=== PATIENT | female | born 1990 ===

== ENCOUNTER 2020-07-10 14:29 | Inpatient (IN) | payer OTHER ==
[~2020-07-10] VITALS: Ht 162.6 cm; Wt 89.8 kg
--- NOTE | 2020-07-10 14:57 | NUR ---
PATIENT WALKED BACK FROM TRIAGE WITH CHIEF C/O SOB,. FEVER, BODY ACHES AND CHILLS X3 DAYS,. PATIENT STATES SHE IS ALSO EXPERIENCING N/V/D, HUSSEIN, LOSS OF TASTE AND SMELL,. NO SIGNS OF ACUTE DISTRESS, CONNECTED TO VITALS MACHINE,. O2 SATURATION IS 93% ON 5 LPM NC, HR 124, BP IS 137/93,. CALL LIGHT WITHIN REACH,.
[2020-07-10] MEDS ORDERED: AZITHROMYCIN 500 MG in SODIUM CHLORIDE 0.9% 250 ML IVPB ONE (15:30)
[2020-07-10] MEDS ORDERED: SODIUM CHLORIDE FLUSH 10ML SYR IVF ONE (15:30)
[2020-07-10] MEDS ORDERED: CEFTRIAXONE PMX 1GM/50ML 50 ML IVPB ONE (15:30)
[2020-07-10] MEDS ORDERED: DEXAMETHASONE 4 MG/ML, 1ML IVPush ONE (15:30)
--- NOTE | 2020-07-10 15:46 | NUR ---
X-RAY AT BEDSIDE.
[2020-07-10 16:04] LABS: BASOPHILS % (AUTO) 0 % (0-1); EOSINOPHILS % (AUTO) 0 % (1-7); LYMPHOCYTES % (AUTO) 14 % (22-44); MEAN CORPUSCULAR HEMOGLOBIN 31.7 pg (27.5-34.5); MEAN CORPUSCULAR HGB CONC 33.1 g/dL (33.2-36.2); MEAN PLATELET VOLUME 7.4 fL (7.4-10.4); MONOCYTES % (AUTO) 8 % (2-9); NEUTROPHILS % (AUTO) 78 % (42-75); PLATELET COUNT 313 x10^3/uL (130-400); RED BLOOD COUNT 4.54 x10^6/uL (4.38-5.82); RED CELL DISTRIBUTION WIDTH 14.6 % (9.4-14.8)
[2020-07-10 16:05] LABS: ALBUMIN 2.3 g/dL (3.4-5.0); ANION GAP 5 mmol/L (5-15); CALCIUM 8.6 mg/dL (8.5-10.1); CHLORIDE 108 mmol/L (98-107); CREATININE 0.72 mg/dL (0.7-1.3)
--- NOTE | 2020-07-10 16:07 | NUR ---
20 gauge IV started right AC, second set of blood cultures drawn and sent to lab.
[2020-07-10 16:08] LABS: D-DIMER 0.37 ug/mlFEU (0.00-0.52); INTERNATIONAL NORMALIZED RATIO 0.96 (0.93-1.1); PROTHROMBIN TIME 10.2 Seconds (9.6-11.5)
[2020-07-10] MEDS ORDERED: CEFTRIAXONE PMX 1GM/50ML 50 ML ONE (16:08)
[2020-07-10 16:09] LABS: MD NO
[2020-07-10] MEDS ORDERED: DEXAMETHASONE 4 MG/ML, 1ML ONE (16:19)
--- NOTE | 2020-07-10 16:56 | NUR ---
PATIENT REQUESTING WATER, SPOKE WITH PROVIDER AND GOT OKAY FOR PATIENT TO HAVE WATER. WATER PROVIDED TO PATIENT, PATIENT RESTING IN RNEY, NO SIGNS OF ACUTE DISTRESS, CONNECTED TO CHARGE ATTENDANT, CALL LIGHT WITHIN REACH AND NO FURTHER NEEDS AT THIS TIME.
--- NOTE | 2020-07-10 17:47 | NUR ---
PROVIDED BSC FOR PATIENT TO USE, PATIENT ABLE TO AMBULATE WITH STEADY GAIT TO BSC.
[2020-07-10] MEDS ORDERED: CEFTRIAXONE PMX 1GM/50ML 50 ML IV SCH (18:30)
[2020-07-10] MEDS: AZITHROMYCIN 500 MG in SODIUM CHLORIDE 0.9% 250 ML IV SCH (18:30)
[2020-07-10] MEDS ORDERED: POLYETHYLENE GLYCOL 17 GM PACKET PO PRN (18:30)
[2020-07-10] MEDS ORDERED: SODIUM CHLORIDE FLUSH 10ML SYR IVF PRN (18:30)
[2020-07-10] MEDS ORDERED: BISACODYL 10 MG SUPP PR PRN (18:30)
[2020-07-10] MEDS ORDERED: HEPARIN 5,000 UNITS/ML, 1ML ONE (18:56)
[2020-07-10] MEDS ORDERED: NS + 20MEQ KCL 1,000 ML IV ONE (18:56)
[2020-07-10] MEDS: HEPARIN 5,000 UNITS/ML, 1ML SQ SCH (19:03)
[2020-07-10] MEDS: NS + 20MEQ KCL 1,000 ML IV SCH (19:03)
--- NOTE | 2020-07-10 19:20 | NUR ---
FLUIDS HUNG, COVID AND FLU SWAB DONE AND WALKED TO LAB. RESPIRATORY AT BEDSIDE.
--- NOTE | 2020-07-10 20:08 | NUR ---
PATIENT RESTING IN GURNEY, WATCHING TV, CONNECTED TO INSURANCE VERIFICATION CLERK, NO SIGNS OF ACUTE DISTRESS, CALL LIGHT WITHIN REACH, BSC EMPTIED.
[2020-07-10 20:13] LABS: RAPID INFLUENZA A Negative (Negative)
[2020-07-10 20:14] LABS: RAPID INFLUENZA B Negative (Negative)
--- NOTE | 2020-07-10 21:13 | NUR ---
PATIENT PROVIDED WARM BLANKET, AND WATER. LAYING IN GURNEY WATCHING TV, NO SIGNS OF ACUTE DISTRESS, CONNECTED TO RETINAL ANGIOGRAPHER, CALL LIGHT WITHIN REACH, NO FURTHER NEEDS AT THIS TIME.
--- NOTE | 2020-07-10 22:26 | NUR ---
HOSPITAL BED REQUESTED.
--- NOTE | 2020-07-10 23:18 | NUR ---
PATIENT TRANSFERRED TO HOSPITAL BED.
--- NOTE | 2020-07-10 23:22 | NUR ---
1ST ATTEMPT TO GIVE REPORT.
--- NOTE | 2020-07-10 23:35 | NUR ---
REPORT CALLED TO [facility] ICU FOR TRANSFER OF PATIENT CARE.
--- NOTE | 2020-07-10 23:54 | NUR ---
PATIENT TRANSFERRED VIA HOSPITAL BED BY THIS RN AND [facility] TO ICU 12. ALL PATIENT BELONGINGS GATHERED AND TAKEN WITH PATIENT. TRANSFER OF CARE TO [facility].
[2020-07-10 23:58] VITALS: BP 132/91
[2020-07-11 03:12] VITALS: BP 131/87
[2020-07-11] MEDS: HEPARIN 5,000 UNITS/ML, 1ML SQ SCH ×3 (03:12→18:20)
[2020-07-11 04:00] LABS: BASOPHILS % (AUTO) 0 % (0-1); EOSINOPHILS % (AUTO) 0 % (1-7); LYMPHOCYTES % (AUTO) 15 % (22-44); MEAN CORPUSCULAR HEMOGLOBIN 31.7 pg (27.0-34.8); MEAN PLATELET VOLUME 7.3 fL (7.4-10.4); MONOCYTES % (AUTO) 8 % (2-9); NEUTROPHILS % (AUTO) 77 % (42-75); PLATELET COUNT 334 x10^3/uL (130-400); RED BLOOD COUNT 4.27 x10^6/uL (3.82-5.3); RED CELL DISTRIBUTION WIDTH 14.4 % (9.6-15.2)
[2020-07-11 04:02] LABS: ANION GAP 7 mmol/L (5-15); CALCIUM 8.4 mg/dL (8.5-10.1); CHLORIDE 112 mmol/L (98-107); CREATININE 0.59 mg/dL (0.55-1.02); MD NO
[2020-07-11] MEDS: NS + 20MEQ KCL 1,000 ML IV SCH ×2 (05:34→20:27)
[2020-07-11 08:30] VITALS: BP 148/99
[2020-07-11] MEDS ORDERED: DEXAMETHASONE 4 MG/ML, 1ML IVPush SCH (09:00)
[2020-07-11] MEDS ORDERED: CHOLECALCIFEROL 1,000 UNIT TABLET PO SCH (09:00)
[2020-07-11] MEDS: SENNA/DOCUSATE TABLET PO SCH (09:00)
[2020-07-11] MEDS ORDERED: ASCORBIC ACID 500 MG TABLET PO SCH (09:00)
[2020-07-11] MEDS ORDERED: ASCORBATE SODIUM 3,000 MG in SODIUM CHLORIDE 0.9% 250 ML IVPB SCH (09:30)
[2020-07-11 09:45] LABS: ALKALINE PHOSPHATASE 89 U/L (45-117); BILIRUBIN,TOTAL 0.2 mg/dL (0.2-1.0); TOTAL PROTEIN 7.2 g/dL (6.4-8.2)
[2020-07-11 09:48] LABS: BILIRUBIN, DIRECT < 0.1 mg/dL (0.1-0.2); BILIRUBIN,INDIRECT 0.1 mg/dL (0.0-2.0)
[2020-07-11 09:49] LABS: ALANINE AMINOTRANSFERASE 50 U/L (12-78); ALBUMIN 2.1 g/dL (3.4-5.0)
[2020-07-11] MEDS ORDERED: CHOLECALCIFEROL 5,000u TAB ONE (10:22)
[2020-07-11] MEDS: ZINC SULFATE 220 MG CAPSULE PO SCH (10:25)
[2020-07-11] MEDS: ASCORBIC ACID 500 MG TABLET PO SCH ×2 (10:25→20:26)
[2020-07-11] MEDS: CEFTRIAXONE PMX 2GM/50ML 50 ML IVPB SCH (10:26)
[2020-07-11] MEDS: CHOLECALCIFEROL 5,000u TAB PO SCH (10:27)
[2020-07-11] MEDS ORDERED: REMDESIVIR 200 MG in SODIUM CHLORIDE 0.9% 250 ML IVPB ONE (11:00)
[2020-07-11] MEDS: INSULIN LISPRO 100 UNITS/ML, PEN SQ-INSULIN SCH ×3 (11:40→20:25)
[2020-07-11 13:58] VITALS: BP 128/83
[2020-07-11] MEDS: DEXAMETHASONE 4 MG/ML, 1ML IVPush SCH ×2 (16:34→20:26)
[2020-07-11] MEDS: AZITHROMYCIN 500 MG in SODIUM CHLORIDE 0.9% 250 ML IV SCH (16:34)
[2020-07-11] MEDS: ONDANSETRON ODT 4 MG PO PRN (16:46)
[2020-07-11] MEDS: metFORMIN 850 MG TABLET PO SCH (18:07)
[2020-07-11 20:38] VITALS: BP 151/99
[2020-07-12] VITALS: BP 125/85
[2020-07-12] MEDS: HEPARIN 5,000 UNITS/ML, 1ML SQ SCH ×3 (03:14→21:02)
[2020-07-12] MEDS: ACETAMINOPHEN 325 MG TABLET PO PRN (04:37)
[2020-07-12] MEDS: NS + 20MEQ KCL 1,000 ML IV SCH ×2 (04:37→16:56)
[2020-07-12 04:41] LABS: ANION GAP 8 mmol/L (5-15); CALCIUM 8.1 mg/dL (8.5-10.1); CHLORIDE 110 mmol/L (98-107)
[2020-07-12 04:47] LABS: ALANINE AMINOTRANSFERASE 43 U/L (12-78); ALKALINE PHOSPHATASE 85 U/L (45-117); BILIRUBIN,TOTAL 0.3 mg/dL (0.2-1.0)
[2020-07-12 08:00] VITALS: BP 142/93
[2020-07-12] MEDS: INSULIN LISPRO 100 UNITS/ML, PEN SQ-INSULIN SCH ×4 (08:37→21:13)
[2020-07-12] MEDS: metFORMIN 850 MG TABLET PO SCH ×2 (08:38→16:56)
[2020-07-12] MEDS: ASCORBIC ACID 500 MG TABLET PO SCH ×2 (08:39→21:02)
[2020-07-12] MEDS: ZINC SULFATE 220 MG CAPSULE PO SCH (08:39)
[2020-07-12] MEDS: SENNA/DOCUSATE TABLET PO SCH (08:39)
[2020-07-12] MEDS: THIAMINE 50MG TABLET PO SCH (08:39)
[2020-07-12] MEDS: DEXAMETHASONE 4 MG/ML, 1ML IVPush SCH ×3 (08:40→21:01)
[2020-07-12] MEDS: CHOLECALCIFEROL 5,000u TAB PO SCH (08:40)
[2020-07-12] MEDS: CEFTRIAXONE PMX 2GM/50ML 50 ML IVPB SCH (08:53)
[2020-07-12] MEDS: REMDESIVIR 100 MG in SODIUM CHLORIDE 0.9% 250 ML IVPB SCH (12:22)
[2020-07-12] MEDS: ONDANSETRON ODT 4 MG PO PRN (13:44)
[2020-07-12 15:00] VITALS: BP 142/87
[2020-07-12] MEDS: AZITHROMYCIN 500 MG in SODIUM CHLORIDE 0.9% 250 ML IV SCH (16:56)
[2020-07-12 20:54] VITALS: BP 126/67
[2020-07-12] MEDS: PROMETHAZINE/COD. 10MG/6.25MG/5 ML ORAL SOL PO PRN (21:03)
[2020-07-13 00:57] VITALS: BP 130/83
[2020-07-13] MEDS: NS + 20MEQ KCL 1,000 ML IV SCH ×2 (04:31→15:47)
[2020-07-13] MEDS: GUAIFENESIN/DM 200-20MG, 10ML UDC PO PRN ×2 (04:31→12:38)
[2020-07-13] MEDS: ACETAMINOPHEN 325 MG TABLET PO PRN (04:31)
[2020-07-13] MEDS: HEPARIN 5,000 UNITS/ML, 1ML SQ SCH ×3 (04:32→22:51)
[2020-07-13 04:58] LABS: CHLORIDE 106 mmol/L (98-107)
[2020-07-13 05:07] LABS: ALANINE AMINOTRANSFERASE 40 U/L (12-78); ALBUMIN 2.1 g/dL (3.4-5.0); ALKALINE PHOSPHATASE 79 U/L (45-117); ANION GAP 9 mmol/L (5-15); BILIRUBIN,TOTAL 0.2 mg/dL (0.2-1.0); CALCIUM 8.5 mg/dL (8.5-10.1); CREATININE 0.76 mg/dL (0.55-1.02); TOTAL PROTEIN 6.9 g/dL (6.4-8.2)
[2020-07-13 05:26] LABS: MEAN CORPUSCULAR HEMOGLOBIN 31.3 pg (27.0-34.8); MEAN CORPUSCULAR HGB CONC 32.8 g/dL (32.4-35.8); MEAN PLATELET VOLUME 7.6 fL (7.4-10.4); PLATELET COUNT 473 x10^3/uL (130-400); RED BLOOD COUNT 4.28 x10^6/uL (3.82-5.3); RED CELL DISTRIBUTION WIDTH 14.3 % (9.6-15.2)
[2020-07-13 06:23] LABS: MD YES
[2020-07-13 06:24] LABS: BANDS%(MANUAL) 4 % (0-7); LYMPH#(MANUAL) 0.98 x10^3/uL (1-3.4); LYMPHS% (MANUAL) 13 % (22-44); METAMYELOCYTES# (MANUAL) 0.08 x10^3/uL (0-0); METAMYELOCYTES% (MANUAL) 1 % (0-1); MONOS#(MANUAL) 0.38 x10^3/uL (0.3-2.7); MONOS% (MANUAL) 5 % (2-9); SEG#(MANUAL) 5.78 x10^3/uL (1.8-6.8); SEGS% (MANUAL) 77 % (42-75)
[2020-07-13 06:25] LABS: <PLATELET ESTIMATE> INCREASED; <PLT MORPHOLOGY> NORMAL PLT MORPH; <RBC MORPHOLOGY> NORMAL
[2020-07-13] MEDS ORDERED: THIAMINE 100MG TABLET ONE (08:18)
[2020-07-13] MEDS: INSULIN LISPRO 100 UNITS/ML, PEN SQ-INSULIN SCH ×4 (08:32→22:53)
[2020-07-13] MEDS: SENNA/DOCUSATE TABLET PO SCH (08:33)
[2020-07-13] MEDS: ASCORBIC ACID 500 MG TABLET PO SCH ×2 (08:33→22:52)
[2020-07-13] MEDS: metFORMIN 850 MG TABLET PO SCH ×3 (08:34→22:52)
[2020-07-13] MEDS: CHOLECALCIFEROL 5,000u TAB PO SCH (08:34)
[2020-07-13] MEDS: ZINC SULFATE 220 MG CAPSULE PO SCH (08:34)
[2020-07-13] MEDS: THIAMINE 50MG TABLET PO SCH (08:34)
[2020-07-13] MEDS: DEXAMETHASONE 4 MG/ML, 1ML IVPush SCH ×3 (08:35→22:51)
[2020-07-13] MEDS: CEFTRIAXONE PMX 2GM/50ML 50 ML IVPB SCH (08:35)
[2020-07-13 08:36] VITALS: BP 119/80
[2020-07-13] MEDS: REMDESIVIR 100 MG in SODIUM CHLORIDE 0.9% 250 ML IVPB SCH (12:06)
[2020-07-13 14:02] VITALS: BP 122/82
[2020-07-13] MEDS: AZITHROMYCIN 500 MG in SODIUM CHLORIDE 0.9% 250 ML IV SCH (15:47)
[2020-07-13] MEDS: PROMETHAZINE/COD. 10MG/6.25MG/5 ML ORAL SOL PO PRN (23:27)
[2020-07-14 02:30] VITALS: BP 132/87
[2020-07-14 04:27] LABS: INTERNATIONAL NORMALIZED RATIO 1.08 (0.93-1.1); PROTHROMBIN TIME 11.4 Seconds (9.6-11.5)
[2020-07-14 04:31] LABS: ALBUMIN 2.4 g/dL (3.4-5.0); ANION GAP 7 mmol/L (5-15); CALCIUM 8.4 mg/dL (8.5-10.1); CHLORIDE 106 mmol/L (98-107)
[2020-07-14 04:34] LABS: CREATININE 0.96 mg/dL (0.55-1.02)
[2020-07-14 04:35] LABS: ALANINE AMINOTRANSFERASE 44 U/L (12-78); ALKALINE PHOSPHATASE 81 U/L (45-117); BILIRUBIN,TOTAL 0.3 mg/dL (0.2-1.0); TOTAL PROTEIN 7.1 g/dL (6.4-8.2)
[2020-07-14] MEDS: HEPARIN 5,000 UNITS/ML, 1ML SQ SCH ×3 (05:26→20:08)
[2020-07-14] MEDS: NS + 20MEQ KCL 1,000 ML IV SCH ×2 (05:26→16:15)
[2020-07-14] MEDS: INSULIN LISPRO 100 UNITS/ML, PEN SQ-INSULIN SCH ×4 (05:32→20:08)
[2020-07-14] MEDS ORDERED: THIAMINE 100MG TABLET ONE (08:54)
[2020-07-14] MEDS: CHOLECALCIFEROL 5,000u TAB PO SCH (09:00)
[2020-07-14] MEDS: SENNA/DOCUSATE TABLET PO SCH (09:00)
[2020-07-14] MEDS: THIAMINE 50MG TABLET PO SCH (09:00)
[2020-07-14 09:54] VITALS: BP 129/84
[2020-07-14] MEDS: CEFTRIAXONE PMX 2GM/50ML 50 ML IVPB SCH (09:57)
[2020-07-14] MEDS: ONDANSETRON ODT 4 MG PO PRN (09:57)
[2020-07-14] MEDS: ASCORBIC ACID 500 MG TABLET PO SCH ×2 (09:59→20:24)
[2020-07-14] MEDS: metFORMIN 850 MG TABLET PO SCH ×3 (09:59→20:08)
[2020-07-14] MEDS: ZINC SULFATE 220 MG CAPSULE PO SCH (09:59)
[2020-07-14] MEDS: DEXAMETHASONE 4 MG/ML, 1ML IVPush SCH ×3 (10:00→20:08)
[2020-07-14] MEDS: REMDESIVIR 100 MG in SODIUM CHLORIDE 0.9% 250 ML IVPB SCH (12:20)
[2020-07-14 12:25] VITALS: BP 101/66
[2020-07-14] MEDS: AZITHROMYCIN 500 MG in SODIUM CHLORIDE 0.9% 250 ML IV SCH (16:15)
[2020-07-14 19:22] VITALS: BP 123/81
[2020-07-14] MEDS: INSULIN GLARGINE 100 UNITS/ML, PEN SQ-INSULIN SCH (20:24)
[2020-07-14] MEDS: PROMETHAZINE/COD. 10MG/6.25MG/5 ML ORAL SOL PO PRN (22:24)
[2020-07-15 00:06] VITALS: BP 121/80
[2020-07-15 04:54] LABS: ALANINE AMINOTRANSFERASE 46 U/L (12-78); ALBUMIN 2.2 g/dL (3.4-5.0); ANION GAP 4 mmol/L (5-15); CALCIUM 8.4 mg/dL (8.5-10.1); CHLORIDE 107 mmol/L (98-107); CREATININE 0.65 mg/dL (0.55-1.02)
[2020-07-15 04:57] LABS: ALKALINE PHOSPHATASE 73 U/L (45-117); BILIRUBIN,TOTAL 0.3 mg/dL (0.2-1.0); TOTAL PROTEIN 6.3 g/dL (6.4-8.2)
[2020-07-15] MEDS: HEPARIN 5,000 UNITS/ML, 1ML SQ SCH ×3 (05:35→20:17)
[2020-07-15] MEDS: INSULIN LISPRO 100 UNITS/ML, PEN SQ-INSULIN SCH ×4 (08:28→20:18)
[2020-07-15] MEDS: ACETAMINOPHEN 325 MG TABLET PO PRN (08:29)
[2020-07-15] MEDS: DEXAMETHASONE 4 MG/ML, 1ML IVPush SCH ×3 (08:29→20:16)
[2020-07-15] MEDS: GUAIFENESIN/DM 200-20MG, 10ML UDC PO PRN ×3 (08:29→23:12)
[2020-07-15] MEDS: ASCORBIC ACID 500 MG TABLET PO SCH ×2 (08:30→20:16)
[2020-07-15] MEDS: ZINC SULFATE 220 MG CAPSULE PO SCH (08:30)
[2020-07-15] MEDS: CHOLECALCIFEROL 5,000u TAB PO SCH (08:30)
[2020-07-15] MEDS: THIAMINE 50MG TABLET PO SCH (08:30)
[2020-07-15] MEDS: SENNA/DOCUSATE TABLET PO SCH (08:31)
[2020-07-15] MEDS: metFORMIN 850 MG TABLET PO SCH ×3 (08:31→20:16)
[2020-07-15 08:32] VITALS: BP 120/80
[2020-07-15] MEDS: CEFTRIAXONE PMX 2GM/50ML 50 ML IVPB SCH (10:51)
[2020-07-15 12:42] VITALS: BP 119/84
[2020-07-15] MEDS: REMDESIVIR 100 MG in SODIUM CHLORIDE 0.9% 250 ML IVPB SCH (13:02)
[2020-07-15] MEDS: AZITHROMYCIN 500 MG in SODIUM CHLORIDE 0.9% 250 ML IV SCH (15:50)
[2020-07-15] MEDS: GUAIFENESIN ER 600 MG TABLET PO SCH (20:16)
[2020-07-15 20:19] VITALS: BP 137/91
[2020-07-15] MEDS: INSULIN GLARGINE 100 UNITS/ML, PEN SQ-INSULIN SCH (20:19)
[2020-07-16 01:27] VITALS: BP 125/84
[2020-07-16] MEDS: HEPARIN 5,000 UNITS/ML, 1ML SQ SCH ×3 (04:45→21:50)
[2020-07-16] MEDS: INSULIN LISPRO 100 UNITS/ML, PEN SQ-INSULIN SCH ×4 (05:13→22:01)
[2020-07-16 07:22] VITALS: BP 117/80
[2020-07-16] MEDS: THIAMINE 50MG TABLET PO SCH (07:26)
[2020-07-16] MEDS: metFORMIN 850 MG TABLET PO SCH ×3 (07:26→21:49)
[2020-07-16] MEDS: ZINC SULFATE 220 MG CAPSULE PO SCH (07:27)
[2020-07-16] MEDS: GUAIFENESIN ER 600 MG TABLET PO SCH ×2 (07:27→22:17)
[2020-07-16] MEDS: CHOLECALCIFEROL 5,000u TAB PO SCH (07:27)
[2020-07-16] MEDS: DEXAMETHASONE 4 MG/ML, 1ML IVPush SCH ×3 (07:27→21:46)
[2020-07-16] MEDS: SENNA/DOCUSATE TABLET PO SCH (07:27)
[2020-07-16] MEDS: ASCORBIC ACID 500 MG TABLET PO SCH ×2 (07:27→22:17)
[2020-07-16] MEDS: CEFTRIAXONE PMX 2GM/50ML 50 ML IVPB SCH (13:10)
[2020-07-16 13:55] VITALS: BP 124/85
[2020-07-16] MEDS ORDERED: ACETAMINOPHEN 650 MG/20.3 ML UDC ONE (16:03)
[2020-07-16] MEDS: GUAIFENESIN/DM 200-20MG, 10ML UDC PO PRN (16:22)
[2020-07-16] MEDS: AZITHROMYCIN 500 MG in SODIUM CHLORIDE 0.9% 250 ML IV SCH (16:38)
[2020-07-16] MEDS: ACETAMINOPHEN 325 MG TABLET PO PRN (18:50)
[2020-07-16] MEDS: INSULIN GLARGINE 100 UNITS/ML, PEN SQ-INSULIN SCH (22:01)
[2020-07-16 22:20] VITALS: BP 126/86
[2020-07-17 03:30] VITALS: BP 127/87
[2020-07-17 05:09] LABS: MEAN CORPUSCULAR HEMOGLOBIN 31.3 pg (27.0-34.8); MEAN CORPUSCULAR HGB CONC 33.1 g/dL (32.4-35.8); MEAN PLATELET VOLUME 7.4 fL (7.4-10.4); PLATELET COUNT 577 x10^3/uL (130-400); RED BLOOD COUNT 4.65 x10^6/uL (3.82-5.3)
[2020-07-17] MEDS: HEPARIN 5,000 UNITS/ML, 1ML SQ SCH ×3 (05:09→21:00)
[2020-07-17] MEDS: GUAIFENESIN/DM 200-20MG, 10ML UDC PO PRN (05:20)
[2020-07-17 05:24] LABS: C-REACTIVE PROTEIN, QUANT 0.39 mg/dL (0.02-0.49)
[2020-07-17 05:52] LABS: MD YES
[2020-07-17 05:54] LABS: <PLATELET ESTIMATE> INCREASED; <RBC MORPHOLOGY> NORMAL; BAND#(MANUAL) 0.37 x10^3/uL; BANDS%(MANUAL) 3 % (0-7); LYMPH#(MANUAL) 1.24 x10^3/uL (1-3.4); LYMPHS% (MANUAL) 10 % (22-44); METAMYELOCYTES# (MANUAL) 0.12 x10^3/uL (0-0); METAMYELOCYTES% (MANUAL) 1 % (0-1); MONOS#(MANUAL) 0.99 x10^3/uL (0.3-2.7); MONOS% (MANUAL) 8 % (2-9); MYELOCYTES# (MANUAL) 0.12 x10^3/uL (0-0); MYELOCYTES% (MANUAL) 1 % (0-0); SEG#(MANUAL) 9.55 x10^3/uL (1.8-6.8); SEGS% (MANUAL) 77 % (42-75)
[2020-07-17 05:55] LABS: LARGE PLATELETS 1+
[2020-07-17] MEDS: INSULIN LISPRO 100 UNITS/ML, PEN SQ-INSULIN SCH ×4 (08:23→21:00)
[2020-07-17] MEDS: ZINC SULFATE 220 MG CAPSULE PO SCH (08:24)
[2020-07-17] MEDS: THIAMINE 50MG TABLET PO SCH (08:24)
[2020-07-17] MEDS: CHOLECALCIFEROL 5,000u TAB PO SCH (08:24)
[2020-07-17] MEDS: GUAIFENESIN ER 600 MG TABLET PO SCH ×2 (08:24→21:00)
[2020-07-17] MEDS: metFORMIN 850 MG TABLET PO SCH ×3 (08:24→21:00)
[2020-07-17] MEDS: ASCORBIC ACID 500 MG TABLET PO SCH ×2 (08:24→21:00)
[2020-07-17] MEDS: SENNA/DOCUSATE TABLET PO SCH (08:24)
[2020-07-17] MEDS: DEXAMETHASONE 4 MG/ML, 1ML IVPush SCH (08:25)
[2020-07-17 08:32] VITALS: BP 117/79
[2020-07-17] MEDS: CEFTRIAXONE PMX 2GM/50ML 50 ML IVPB SCH (10:42)
[2020-07-17 13:16] VITALS: BP 109/73
[2020-07-17] MEDS: AZITHROMYCIN 500 MG in SODIUM CHLORIDE 0.9% 250 ML IV SCH (16:34)
[2020-07-17 21:00] VITALS: BP 127/81
[2020-07-17] MEDS: INSULIN GLARGINE 100 UNITS/ML, PEN SQ-INSULIN SCH (21:00)
[2020-07-18 02:00] VITALS: BP 82/62
[2020-07-18] MEDS: HEPARIN 5,000 UNITS/ML, 1ML SQ SCH ×3 (05:00→20:21)
[2020-07-18 09:00] VITALS: BP 114/79
[2020-07-18] MEDS: INSULIN LISPRO 100 UNITS/ML, PEN SQ-INSULIN SCH ×4 (09:34→20:36)
[2020-07-18] MEDS: metFORMIN 850 MG TABLET PO SCH ×3 (09:35→20:21)
[2020-07-18] MEDS: SENNA/DOCUSATE TABLET PO SCH (09:35)
[2020-07-18] MEDS: GUAIFENESIN ER 600 MG TABLET PO SCH ×2 (09:35→20:21)
[2020-07-18] MEDS: DEXAMETHASONE 4 MG/ML, 1ML IVPush SCH (09:35)
[2020-07-18] MEDS: THIAMINE 50MG TABLET PO SCH (09:36)
[2020-07-18] MEDS: CHOLECALCIFEROL 5,000u TAB PO SCH (09:37)
[2020-07-18] MEDS: ZINC SULFATE 220 MG CAPSULE PO SCH (09:37)
[2020-07-18] MEDS: ASCORBIC ACID 500 MG TABLET PO SCH ×2 (09:37→20:21)
[2020-07-18] MEDS: CEFTRIAXONE PMX 2GM/50ML 50 ML IVPB SCH (10:56)
[2020-07-18] MEDS: ACETAMINOPHEN 325 MG TABLET PO PRN (13:01)
[2020-07-18 14:00] VITALS: BP 129/81
[2020-07-18] MEDS: AZITHROMYCIN 500 MG in SODIUM CHLORIDE 0.9% 250 ML IV SCH (16:05)
[2020-07-18 18:59] VITALS: BP 137/85
[2020-07-18] MEDS: GUAIFENESIN/DM 200-20MG, 10ML UDC PO PRN (19:45)
[2020-07-18] MEDS: INSULIN GLARGINE 100 UNITS/ML, PEN SQ-INSULIN SCH (20:36)
[2020-07-19 00:26] VITALS: BP 125/85
[2020-07-19] MEDS: HEPARIN 5,000 UNITS/ML, 1ML SQ SCH ×3 (04:39→21:31)
[2020-07-19 04:43] LABS: MEAN CORPUSCULAR HEMOGLOBIN 31.5 pg (27.0-34.8); MEAN CORPUSCULAR HGB CONC 33.1 g/dL (32.4-35.8); MEAN PLATELET VOLUME 7.6 fL (7.4-10.4); PLATELET COUNT 481 x10^3/uL (130-400); RED BLOOD COUNT 4.43 x10^6/uL (3.82-5.3); RED CELL DISTRIBUTION WIDTH 14.4 % (9.6-15.2)
[2020-07-19 04:53] LABS: ANION GAP 6 mmol/L (5-15); CALCIUM 8.3 mg/dL (8.5-10.1); CHLORIDE 111 mmol/L (98-107); CREATININE 0.56 mg/dL (0.55-1.02)
[2020-07-19 05:48] LABS: MD YES
[2020-07-19 05:50] LABS: BASOS#(MANUAL) 0.13 x10^3/uL (0-0.1); BASOS% (MANUAL) 1 % (0-1); LYMPH#(MANUAL) 1.25 x10^3/uL (1-3.4); LYMPHS% (MANUAL) 10 % (22-44); METAMYELOCYTES% (MANUAL) 4 % (0-1); MONOS#(MANUAL) 1.13 x10^3/uL (0.3-2.7); MONOS% (MANUAL) 9 % (2-9); MYELOCYTES# (MANUAL) 0.13 x10^3/uL (0-0); MYELOCYTES% (MANUAL) 1 % (0-0); SEG#(MANUAL) 9.38 x10^3/uL (1.8-6.8); SEGS% (MANUAL) 75 % (42-75)
[2020-07-19 05:56] LABS: <PLATELET ESTIMATE> INCREASED; <PLT MORPHOLOGY> NORMAL PLT MORPH; <RBC MORPHOLOGY> NORMAL
[2020-07-19] MEDS: INSULIN LISPRO 100 UNITS/ML, PEN SQ-INSULIN SCH ×4 (06:20→21:32)
[2020-07-19 08:00] VITALS: BP 125/83
[2020-07-19] MEDS: SENNA/DOCUSATE TABLET PO SCH (09:30)
[2020-07-19] MEDS: THIAMINE 50MG TABLET PO SCH (09:30)
[2020-07-19] MEDS: CHOLECALCIFEROL 5,000u TAB PO SCH (09:31)
[2020-07-19] MEDS: GUAIFENESIN ER 600 MG TABLET PO SCH ×2 (09:31→21:31)
[2020-07-19] MEDS: metFORMIN 850 MG TABLET PO SCH ×3 (09:31→21:31)
[2020-07-19] MEDS: ZINC SULFATE 220 MG CAPSULE PO SCH (09:31)
[2020-07-19] MEDS: DEXAMETHASONE 4 MG/ML, 1ML IVPush SCH (09:31)
[2020-07-19] MEDS: ASCORBIC ACID 500 MG TABLET PO SCH ×2 (09:31→21:31)
[2020-07-19] MEDS: CEFTRIAXONE PMX 2GM/50ML 50 ML IVPB SCH (11:08)
[2020-07-19] MEDS ORDERED: FUROSEMIDE 40 MG/4 ML IV SCH (13:00)
[2020-07-19] MEDS: POTASSIUM CHLORIDE 20 MEQ TAB.ER.PRT PO SCH (13:42)
[2020-07-19 14:15] VITALS: BP 148/94
[2020-07-19] MEDS: AZITHROMYCIN 500 MG in SODIUM CHLORIDE 0.9% 250 ML IV SCH (16:18)
[2020-07-19] MEDS: ACETAMINOPHEN 325 MG TABLET PO PRN (16:36)
[2020-07-19 20:20] VITALS: BP 126/87
[2020-07-19] MEDS: INSULIN GLARGINE 100 UNITS/ML, PEN SQ-INSULIN SCH (21:32)
[2020-07-20] MEDS: GUAIFENESIN/DM 200-20MG, 10ML UDC PO PRN ×2 (00:58→19:58)
[2020-07-20 01:09] VITALS: BP 120/64
[2020-07-20 04:53] LABS: BASOPHILS % (AUTO) 0 % (0-1); EOSINOPHILS % (AUTO) 1 % (1-7); LYMPHOCYTES % (AUTO) 12 % (22-44); MEAN CORPUSCULAR HEMOGLOBIN 31.2 pg (27.0-34.8); MEAN CORPUSCULAR HGB CONC 32.9 g/dL (32.4-35.8); MEAN PLATELET VOLUME 7.9 fL (7.4-10.4); MONOCYTES % (AUTO) 12 % (2-9); NEUTROPHILS % (AUTO) 76 % (42-75); PLATELET COUNT 492 x10^3/uL (130-400); RED BLOOD COUNT 4.61 x10^6/uL (3.82-5.3); RED CELL DISTRIBUTION WIDTH 14.3 % (9.6-15.2)
[2020-07-20 04:58] LABS: CALCIUM 8.3 mg/dL (8.5-10.1); CHLORIDE 109 mmol/L (98-107)
[2020-07-20 05:02] LABS: ANION GAP 5 mmol/L (5-15); CREATININE 0.54 mg/dL (0.55-1.02)
[2020-07-20] MEDS: HEPARIN 5,000 UNITS/ML, 1ML SQ SCH ×3 (05:14→19:52)
[2020-07-20 05:52] LABS: MD SCAN
[2020-07-20] MEDS: INSULIN LISPRO 100 UNITS/ML, PEN SQ-INSULIN SCH ×4 (07:00→19:58)
[2020-07-20 08:00] VITALS: BP 122/85
[2020-07-20] MEDS: metFORMIN 850 MG TABLET PO SCH ×3 (08:17→19:51)
[2020-07-20] MEDS: ASCORBIC ACID 500 MG TABLET PO SCH ×2 (08:17→19:51)
[2020-07-20] MEDS: GUAIFENESIN ER 600 MG TABLET PO SCH ×2 (08:17→19:51)
[2020-07-20] MEDS: SENNA/DOCUSATE TABLET PO SCH (08:17)
[2020-07-20] MEDS: THIAMINE 50MG TABLET PO SCH (08:17)
[2020-07-20] MEDS: CHOLECALCIFEROL 5,000u TAB PO SCH (08:17)
[2020-07-20] MEDS: ZINC SULFATE 220 MG CAPSULE PO SCH (08:17)
[2020-07-20] MEDS: POTASSIUM CHLORIDE 20 MEQ TAB.ER.PRT PO SCH (08:18)
[2020-07-20] MEDS ORDERED: DEXAMETHASONE 4 MG/ML, 1ML IVPush SCH (09:00)
[2020-07-20] MEDS ORDERED: FUROSEMIDE 40 MG/4 ML IV SCH (09:00)
[2020-07-20] MEDS: CEFTRIAXONE PMX 2GM/50ML 50 ML IVPB SCH (11:12)
[2020-07-20] MEDS: ACETAMINOPHEN 325 MG TABLET PO PRN (11:15)
[2020-07-20 14:00] VITALS: BP 118/81
[2020-07-20] MEDS: AZITHROMYCIN 500 MG in SODIUM CHLORIDE 0.9% 250 ML IV SCH (16:36)
[2020-07-20 19:27] VITALS: BP 136/91
[2020-07-20] MEDS: INSULIN GLARGINE 100 UNITS/ML, PEN SQ-INSULIN SCH (19:53)
[2020-07-21 00:21] VITALS: BP 122/90
[2020-07-21] MEDS: ACETAMINOPHEN 325 MG TABLET PO PRN (00:28)
[2020-07-21] MEDS: HEPARIN 5,000 UNITS/ML, 1ML SQ SCH ×2 (04:58→12:08)
[2020-07-21 08:14] VITALS: BP 122/77
[2020-07-21] MEDS: INSULIN LISPRO 100 UNITS/ML, PEN SQ-INSULIN SCH ×3 (08:14→16:31)
[2020-07-21] MEDS: CHOLECALCIFEROL 5,000u TAB PO SCH (08:28)
[2020-07-21] MEDS: ASCORBIC ACID 500 MG TABLET PO SCH (08:28)
[2020-07-21] MEDS: ZINC SULFATE 220 MG CAPSULE PO SCH (08:28)
[2020-07-21] MEDS: GUAIFENESIN ER 600 MG TABLET PO SCH (08:28)
[2020-07-21] MEDS: THIAMINE 50MG TABLET PO SCH (08:28)
[2020-07-21] MEDS: metFORMIN 850 MG TABLET PO SCH ×2 (08:28→16:31)
[2020-07-21] MEDS: POTASSIUM CHLORIDE 20 MEQ TAB.ER.PRT PO SCH (08:28)
[2020-07-21] MEDS: SENNA/DOCUSATE TABLET PO SCH (08:28)
[2020-07-21] MEDS ORDERED: METF850T PO (09:03)
[2020-07-21] MEDS ORDERED: INSU100I13 SQ-INSULIN (09:03)
[2020-07-21] MEDS ORDERED: INSU100I11 SQ-INSULIN (09:03)
[2020-07-21 14:09] VITALS: BP 137/89
== END 2020-07-21 16:36 | disposition home or self-care (01) | DRG 177 ==
LOC: EDSEX 14:29 → ED 18:54 → EDIP 19:25 → ICU 23:47
PROVIDERS: ADMIT Internal Medicine; ATTEND Hospitalist
DX: U07.1 COVID-19 (principal); J96.01 Acute respiratory failure with hypoxia; J12.89 Other viral pneumonia; E46 Unspecified protein-calorie malnutrition; E11.65 Type 2 diabetes mellitus with hyperglycemia; Z68.34 Body mass index [BMI] 34.0-34.9, adult; Z88.0 Allergy status to penicillin; E66.9 Obesity, unspecified; E87.6 Hypokalemia; T38.0X5A Adverse effect of glucocorticoids and synthetic analogues, initial encounter; Y92.89 Other specified places as the place of occurrence of the external cause
CPT/HCPCS: 36415; 71045; 80048; 80053; 80076; 82040; 82962; 83036; 83605; 83615; 83880; 85025; 85379; 85610; 85730; 86140; 87040; 87081; 87400; 87635; 87806; 93005; 96365; 96368; 96375; 99285; G0378; J0456; J0696; J1100; J1644; J1940; J3480; Q0162; G0475; J1815; J7050